=== PATIENT | female | born 1995 | race American Indian/Alaskan Native ===

== ENCOUNTER 2018-09-19 13:40 | Inpatient (IN) | payer OTHER ==
[2018-09-19] MEDS ORDERED: DILAUDID IV ONE (14:01)
--- NOTE | 2018-09-19 14:02 | Emergency Department Report ---
ED General Adult HPI - General Chief complaint: Sickle Cell Crisis Stated complaint: SICKLE CELL PAIN Time Seen by Provider: 09/19/18 13:54 Source: patient, EMS (ems notes not available at time of chart dictation), RN notes reviewed, old records reviewed Mode of arrival: Stretcher Limitations: No Limitations - History of Present Illness Initial comments: This is a 23-year-old female. The patient is not known to this provider previously. The patient reports that she is 5 months . 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 She does not have a local PLASTER LATHER physician. She does not have a local shingle carrier. The patient reports that she is 3, para 2, 0 She presents to the emergency room today with a complaint of nontraumatic left- sided leg pain. The pain is in the left posterior calf. It is sharp. It is constant. It does not radiate anywhere. It worsens with palpation and range of motion. It decreases with rest. She reports that she feels like she is having her typical sickle cell crises. Her triggers include cold weather, change of seasons. She denies headache, neck pain, chest pain, abdominal pain, shortness of breath, sore throat, irritative/obstructive urinary symptoms. Her pain started last night. She reports it is basically constant. -: Gradual Location: left, lower extremity Quality: aching Consistency: other Improves with: other Worsens with: other - Related Data Home Medications Medication Instructions Recorded Confirmed Last Taken No Known Home Medications [No 09/19/18 09/19/18 Unknown Reported Home Medications] Allergies Allergy/AdvReac Type Severity Reaction Status Date / Time No Known Allergies Allergy Unverified 08/26/14 11:39 ED Review of Systems ROS: Stated complaint: SICKLE CELL PAIN Other details as noted in HPI Constitutional: denies: fever, malaise Eyes: denies: vision change ENT: denies: epistaxis Respiratory: denies: cough Cardiovascular: denies: chest pain Gastrointestinal: denies: abdominal pain, nausea, vomiting Genitourinary: denies: urgency, dysuria Musculoskeletal: arthralgia, myalgia Skin: denies: lesions Neurological: denies: headache, weakness Psychiatric: denies: anxiety ED Past Medical Hx - Past Medical History Previous Medical History?: Yes Hx Sickle Cell Disease: Yes (SC) - Surgical History Past Surgical History?: Yes Additional Surgical History: x 1 - Social History Smoking Status: Never Smoker Substance Use Type: None - Medications Home Medications: Home Medications Medication Instructions Recorded Confirmed Last Taken Type No Known Home Medications [No 09/19/18 09/19/18 Unknown History Reported Home Medications] ED Physical Exam - General Limitations: No Limitations General appearance: alert, in no apparent distress - Head Head exam: Present: atraumatic, normocephalic - Eye Eye exam: Present: normal appearance, EOMI. Absent: nystagmus - ENT ENT exam: Present: normal exam, normal orophraynx, mucous membranes moist - Neck Neck exam: Present: normal inspection, full ROM. Absent: tenderness, meningismus - Respiratory Respiratory exam: Present: normal lung sounds bilaterally. Absent: respiratory distress - Cardiovascular Cardiovascular Exam: Present: regular rate, normal rhythm, normal heart sounds. Absent: bradycardia, tachycardia, irregular rhythm, systolic murmur, diastolic murmur, rubs, gallop - GI/Abdominal GI/Abdominal exam: Present: soft. Absent: distended, tenderness, guarding, rebound, rigid, pulsatile mass - Extremities Exam Extremities exam: Present: normal inspection, full ROM, other (2+ pulses noted in the bilateral upper, lower extremities. Compartments soft. No long bony tenderness. The pelvis is stable.). Absent: tenderness, pedal edema, joint sw elling, calf tenderness - Back Exam Back exam: Present: normal inspection, full ROM. Absent: tenderness, CVA tenderness (R), paraspinal tenderness, vertebral tenderness - Neurological Exam Neurological exam: Present: alert, oriented X3, CN II-XII intact, other (Extraocular movements intact. Tongue midline. No facial droop. Facial sensation intact to light touch in the V1, V2, V3 distribution bilaterally. 5 and 5 strength in 4 extremities.. Sensation is intact to light touch in 4 extremities.). Absent: motor sensory deficit - Psychiatric Psychiatric exam: Present: normal affect, normal mood - Skin Skin exam: Present: warm, dry, intact, normal color. Absent: rash ED Course Vital Signs 09/19/18 09/19/18 09/19/18 15:13 15:16 15:24 Temperature 99.3 F Pulse Rate 125 H Respiratory 16 Rate Blood Pressure 124/69 124/69 Blood Pressure 124/69 [Right] O2 Sat by Pulse 100 100 125 H Oximetry 09/19/18 09/19/18 09/19/18 15:30 15:45 16:00 Temperature Pulse Rate 111 H 98 H 104 H Respiratory 12 12 18 Rate Blood Pressure 124/69 126/63 126/63 Blood Pressure 98/52 [Right] O2 Sat by Pulse 98 99 98 Oximetry 09/19/18 09/19/18 09/19/18 16:24 16:30 16:46 Temperature Pulse Rate 129 H 121 H 104 H Respiratory 21 16 14 Rate Blood Pressure 98/52 113/51 113/51 Blood Pressure 118/66 [Right] O2 Sat by Pulse 98 100 Oximetry 09/19/18 09/19/18 09/19/18 17:00 17:08 17:30 Temperature Pulse Rate 114 H 114 H Respiratory 14 16 16 Rate Blood Pressure 108/58 Blood Pressure 108/58 123/64 [Right] O2 Sat by Pulse 98 100 Oximetry - Reevaluation(s) Reevaluation #1: 09/19/18 15:01 Differential diagnosis, including without limited to: Sickle cell crisis, DVT, incidental , urinary tract infection Assessment and plan: 23-year-old female who reports that she is , with no outpatient care, reportedly 5 months , with nontraumatic left leg pain. The patient is currently sleeping, and no acute distress. We will obtain left lower extremity DVT study, although she is not tachycardic, she is not hypoxic, does not endorse chest pain, and her physical examination thus far does not appear to be consistent with DVT. Given endorse lack of care, we will obtain ultrasound, and appropriate screening laboratory studies, including urinalysis. She will be treated with IV fluids, and hydromorphone. Reevaluation #2: 09/19/18 16:35 Laboratory studies haven't indicated hyponatremia, hypochloremia, hypo-kalemia. DVT study was negative. Discussed with nephrology nuclear control room operator, Dr. Dumont, who finds it unlikely that the patient's sodium is truly 80, and recommends repeating laboratory studies she is not encephalopathic. I am in agreement with his recommendations. Patient found to be tachycardic, leukocytosis, with elevated reticulocyte count. I will await return of her sodium, and initiate therapy with ceftriaxone empirically. If the patient is truly hyponatremic, I will initiate volume resuscitation in coordination with pathologies recommendations, as we do not want to precipitate osmotic demyelination syndrome. Also discussed with obstetrics slate trimmer nuclear control room operator, Arlene covering for Dr. Ocasio, the OB group agrees to follow in consultation. Patient will likely be admitted to the medical service for electrolyte derangement, and sickle cell crisis. Reevaluation #3: 09/19/18 16:53 Repeat laboratory studies demonstrate normal sodium, normalized potassium. Reevaluation #4: 09/19/18 17:13 Dr Barney to admit for sirs, sickle cell crisis. Repeat laboratory studies reviewed and appreciated. Ultrasound pending, obstetrics consultation pending. Reevaluation #5: 09/19/18 18:54 X-ray the chest is negative for acute disease. ED Medical Decision Making - Lab Data Result diagrams: 09/19/18 14:37 09/19/18 16:06 Lab Results 09/19/18 Range/Units 14:37 WBC 21.4 H (4.5-11.0) K/mm3 RBC 4.06 (3.65-5.03) M/mm3 Hgb 11.0 (10.1-14.3) gm/dl Hct 32.4 (30.3-42.9) % MCV 80 (79-97) fl MCH 27 L (28-32) pg MCHC 34 (30-34) % RDW 18.6 H (13.2-15.2) % Plt Count 378 (140-440) K/mm3 Percent Retic 4.36 H (0.78-2.58) % - EKG Data -: EKG Interpreted by [facility] EKG shows normal: sinus rhythm Rate: normal - EKG Data 09/19/18 16:37 Sinus tachycardia, 104 bpm, normal axis, QTC prolonged, abnormal EKG, not having chest pain, borderline atrial enlargement, not consistent with ST elevation myocardial infarction. - Radiology Data Radiology results: pending Critical care attestation.: If time is entered above; I have spent that time in minutes in the direct care of this critically ill patient, excluding procedure time. ED Disposition Clinical Impression: Sickle cell crisis, , Systemic inflammatory response syndrome (SIRS) Disposition: OP ADMIT IP TO THIS HOSP Is pt being admited?: Yes Condition: Good
[2018-09-19 14:55] LABS: Hematocrit 32.4 % (30.3-42.9); Mean Corpuscular HGB Conc 34 % (30-34); Mean Corpuscular Volume 80 fl (79-97); Platelet Count 378 K/mm3 (140-440); Red Blood Count 4.06 M/mm3 (3.65-5.03); Red Cell Distribution Width 18.6 % (13.2-15.2)
[2018-09-19] MEDS ORDERED: D5/0.45NS 1,000 ML IV SCH ×2 (15:00→18:00)
[2018-09-19 15:30] LABS: BUN/Creatinine Ratio 13; Blood Urea Nitrogen 4 mg/dL (7-17); Calcium 8.6 mg/dL (8.4-10.2); Hemolysis Index 10; RBC Morphology Normal; Total Cells Counted 100
[2018-09-19 15:31] LABS: Giant Platelets 1+
[2018-09-19 15:34] LABS: Alanine Aminotransferase < 5 units/L (7-56); Albumin < 0.2 g/dL (3.9-5)
--- NOTE | 2018-09-19 15:41 | Vascular Lab Report ---
PROCEDURE: VL VENOUS DUPLEX LE LT TECHNIQUE: Duplex Doppler ultrasound of the veins of the left infarction was performed HISTORY: lle pain hb sc diseasse COMPARISONS: None. FINDINGS: The veins of the left lower extremity are patent, compressible, demonstrate normal waveforms and augm entation. IMPRESSION: No evidence of deep venous thrombosis of the left lower extremity. This document is electronically signed by Gely Wahl MD., September 19 2018 03:38:37 PM ET
[2018-09-19] MEDS ORDERED: ROCEPHIN/NS 1 GM/50 ML 1 GM/50 ML BAG IV ONE (15:42)
[2018-09-19 15:43] LABS: Bacteria,Urine 2+ /HPF (Negative); Bilirubin,Urine NEG (Negative); Blood,Urine NEG (Negative); Color,Urine Yellow (Yellow); Protein,Urine <15 mg/dL mg/dL (Negative); Urobilinogen,Urine < 2.0 mg/dL (<2.0)
[2018-09-19 16:44] LABS: BUN/Creatinine Ratio 13; Blood Urea Nitrogen 4 mg/dL (7-17); Calcium 8.3 mg/dL (8.4-10.2); Hemolysis Index 46
[2018-09-19] MEDS ORDERED: NACL 0.9% 1000 ML 2,000 ML IV ONE (16:56)
--- NOTE | 2018-09-19 17:50 | XRay Report ---
PROCEDURE: XR CHEST ROUTINE 2V TECHNIQUE: PA and lateral views of the chest. HISTORY: sirs, hbsc crisis, ? pneumonia COMPARISONS: None FINDINGS: Lines, tubes, and devices: N/A Lungs and pleura: Trachea is normal in position. Lungs are clear of infiltrate, pleural effusion, vas cular congestion, or pneumothorax. Cardiomediastinal silhouette: Cardiac and mediastinal silhouettes are unremarkable. Other: Bony structures are intact. IMPRESSION: No acute cardiopulmonary process seen. . This document is electronically signed by Faby Yip MD., September 19 2018 05:48:30 PM ET
--- NOTE | 2018-09-19 19:07 | Event Note ---
Date: 09/19/18 Provider at bedside to see pt but pt not in room.Will come back later.
--- NOTE | 2018-09-19 20:18 | Ultrasound Report ---
PROCEDURE: US OB >= 14 WEEKS FETUS HISTORY: [facility] FINDINGS: Real-time ultrasound of the pelvis was performed by transabdominal technique. These images demonstrate a single live intrauterine gestation in cephalic lie, with cardiac act ivity at 150 bpm. The choroid plexus, cisterna magna, cerebellum, lateral ventricles, stomach, kidneys, bladder, diaphr agm, four-chamber heart, three-vessel cord, anterior cord insertion were identified. Biparietal diameter is 3.9 cm which corresponds to 18 weeks and 0 days. Head circumference is 15.2 cm corresponds to 18 weeks 1 day. Abdominal circumference is 13.4 cm corresponds to 18 weeks and 6 days. Femur length is 2.6 cm which corresponds to 18 weeks and 0 days. There is an anterior grade 1 placenta. Cervical length is 5.1 cm. Amniotic fluid index was not measured. Deepest fluid pocket is 5.4 cm. IMPRESSION: Live intrauterine gestation 18 weeks 2 days. Estimated date of delivery is February 18 9 This document is electronically signed by Rafi Dupree MD., September 19 2018 08:16:38 PM ET
[2018-09-19] MEDS: DILAUDID IM PRN (20:31)
[2018-09-19] MEDS: NACL 0.9% 1000 ML 1,000 ML IV SCH (20:31)
--- NOTE | 2018-09-19 23:29 | History and Physical Report ---
History of Present Illness Date of examination: 09/19/18 Date of admission: 09/19/18 17:15 Medications and Allergies Allergies Allergy/AdvReac Type Severity Reaction Status Date / Time No Known Allergies Allergy Unverified 08/26/14 11:39 Home Medications Medication Instructions Recorded Confirmed Last Taken Type No Known Home Medications [No 09/19/18 09/19/18 Unknown History Reported Home Medications] Active Meds: Active Medications Hydromorphone HCl (Dilaudid) 1 mg IM Q4H PRN PRN Reason: Pain , Severe (7-10) Last Admin: 09/19/18 20:31 Dose: 1 mg Documented by: Dextrose/Sodium Chloride (D5/0.45ns) 1,000 mls @ 0 mls/hr IV DIRECT OC Last Admin: 09/19/18 15:00 Dose: 999 mls/hr Documented by: Dextrose/Sodium Chloride (D5/0.45ns) 1,000 mls @ 0 mls/hr IV DIRECT OC Sodium Chloride (Nacl 0.9% 1000 Ml) 1,000 mls @ 125 mls/hr IV DIRECT OC Last Admin: 09/19/18 20:31 Dose: 125 mls/hr Documented by: Exam - Constitutional Vitals: Temp Pulse Resp BP Pulse Ox 98.7 F 110 H 16 114/69 100 09/19/18 20:26 09/19/18 20:26 09/19/18 20:26 09/19/18 20:26 09/19/18 20:26 Results - Labs CBC & Chem 7: 09/19/18 14:37 09/19/18 16:06 Labs: Laboratory Last Values WBC 21.4 K/mm3 (4.5-11.0) H 09/19/18 14:37 RBC 4.06 M/mm3 (3.65-5.03) 09/19/18 14:37 Hgb 11.0 gm/dl (10.1-14.3) 09/19/18 14:37 Hct 32.4 % (30.3-42.9) 09/19/18 14:37 MCV 80 fl (79-97) 09/19/18 14:37 MCH 27 pg (28-32) L 09/19/18 14:37 MCHC 34 % (30-34) 09/19/18 14:37 RDW 18.6 % (13.2-15.2) H 09/19/18 14:37 Plt Count 378 K/mm3 (140-440) 09/19/18 14:37 Add Manual Diff Complete 09/19/18 14:37 Total Counted 100 09/19/18 14:37 Seg Neuts % (Manual) 82.0 % (40.0-70.0) H 09/19/18 14:37 Band Neutrophils % 0 % 09/19/18 14:37 Lymphocytes % (Manual) 11.0 % (13.4-35.0) L 09/19/18 14:37 Reactive Lymphs % (Man) 0 % 09/19/18 14:37 Monocytes % (Manual) 4.0 % (0.0-7.3) 09/19/18 14:37 Eosinophils % (Manual) 2.0 % (0.0-4.3) 09/19/18 14:37 Basophils % (Manual) 1.0 % (0.0-1.8) 09/19/18 14:37 Metamyelocytes % 0 % 09/19/18 14:37 Myelocytes % 0 % 09/19/18 14:37 Promyelocytes % 0 % 09/19/18 14:37 Blast Cells % 0 % 09/19/18 14:37 Nucleated RBC % Not Reportable 09/19/18 14:37 Seg Neutrophils # Man 17.5 K/mm3 (1.8-7.7) H 09/19/18 14:37 Band Neutrophils # 0.0 K/mm3 09/19/18 14:37 Lymphocytes # (Manual) 2.4 K/mm3 (1.2-5.4) 09/19/18 14:37 Abs React Lymphs (Man) 0.0 K/mm3 09/19/18 14:37 Monocytes # (Manual) 0.9 K/mm3 (0.0-0.8) H 09/19/18 14:37 Eosinophils # (Manual) 0.4 K/mm3 (0.0-0.4) 09/19/18 14:37 Basophils # (Manual) 0.2 K/mm3 (0.0-0.1) H 09/19/18 14:37 Metamyelocytes # 0.0 K/mm3 09/19/18 14:37 Myelocytes # 0.0 K/mm3 09/19/18 14:37 Promyelocytes # 0.0 K/mm3 09/19/18 14:37 Blast Cells # 0.0 K/mm3 09/19/18 14:37 WBC Morphology Not Reportable 09/19/18 14:37 Hypersegmented Neuts Not Reportable 09/19/18 14:37 Hyposegmented Neuts Not Reportable 09/19/18 14:37 Hypogranular Neuts Not Reportable 09/19/18 14:37 Smudge Cells Not Reportable 09/19/18 14:37 Toxic Granulation Not Reportable 09/19/18 14:37 Toxic Vacuolation Not Reportable 09/19/18 14:37 Dohle Bodies Not Reportable 09/19/18 14:37 Pelger-Huet Anomaly Not Reportable 09/19/18 14:37 Octavia Rods Not Reportable 09/19/18 14:37 Platelet Estimate Not Reportable 09/19/18 14:37 Clumped Platelets Not Reportable 09/19/18 14:37 Plt Clumps, EDTA Not Reportable 09/19/18 14:37 Large Platelets Not Reportable 09/19/18 14:37 Giant Platelets 1+ 09/19/18 14:37 Platelet Satelliting Not Reportable 09/19/18 14:37 Plt Morphology Comment Not Reportable 09/19/18 14:37 RBC Morphology Normal 09/19/18 14:37 Dimorphic RBCs Not Reportable 09/19/18 14:37 Polychromasia Not Reportable 09/19/18 14:37 Hypochromasia Not Reportable 09/19/18 14:37 Poikilocytosis Not Reportable 09/19/18 14:37 Anisocytosis Not Reportable 09/19/18 14:37 Microcytosis Not Reportable 09/19/18 14:37 Macrocytosis Not Reportable 09/19/18 14:37 Spherocytes Not Reportable 09/19/18 14:37 Pappenheimer Bodies Not Reportable 09/19/18 14:37 Sickle Cells Not Reportable 09/19/18 14:37 Target Cells Not Reportable 09/19/18 14:37 Tear Drop Cells Not Reportable 09/19/18 14:37 Ovalocytes Not Reportable 09/19/18 14:37 Helmet Cells Not Reportable 09/19/18 14:37 Roland-[place] Bodies Not Reportable 09/19/18 14:37 [place] Rings Not Reportable 09/19/18 14:37 Snehal Cells Not Reportable 09/19/18 14:37 Bite Cells Not Reportable 09/19/18 14:37 Crenated Cell Not Reportable 09/19/18 14:37 Elliptocytes Not Reportable 09/19/18 14:37 Acanthocytes (Spur) Not Reportable 09/19/18 14:37 Rouleaux Not Reportable 09/19/18 14:37 Hemoglobin C Crystals Not Reportable 09/19/18 14:37 Schistocytes Not Reportable 09/19/18 14:37 Malaria parasites Not Reportable 09/19/18 14:37 Percent Retic 4.36 % (0.78-2.58) H 09/19/18 14:37 Reji Bodies Not Reportable 09/19/18 14:37 Hem Pathologist Commnt No 09/19/18 14:37 Sodium 131 mmol/L (137-145) L D 09/19/18 16:06 Potassium 3.7 mmol/L (3.6-5.0) D 09/19/18 16:06 Chloride 100.3 mmol/L (98-107) 09/19/18 16:06 Carbon Dioxide 20 mmol/L (22-30) L 09/19/18 16:06 Anion Gap 14 mmol/L 09/19/18 16:06 BUN 4 mg/dL (7-17) L 09/19/18 16:06 Creatinine 0.3 mg/dL (0.7-1.2) L 09/19/18 16:06 Estimated GFR > 60 ml/min 09/19/18 16:06 BUN/Creatinine Ratio 13 % 09/19/18 16:06 Glucose 207 mg/dL (65-100) H 09/19/18 16:06 Osmolality 285 Mosm/kg 09/19/18 16:06 Lactic Acid 1.50 mmol/L (0.7-2.0) 09/19/18 16:06 Calcium 8.3 mg/dL (8.4-10.2) L 09/19/18 16:06 Magnesium 1.90 mg/dL (1.7-2.3) 09/19/18 16:06 Total Bilirubin 0.60 mg/dL (0.1-1.2) 09/19/18 14:37 AST 16 units/L (5-40) 09/19/18 14:37 ALT < 5 units/L (7-56) L 09/19/18 14:37 Alkaline Phosphatase < 5 units/L (35-129) L 09/19/18 14:37 Total Creatine Kinase 31 units/L (30-135) 09/19/18 14:37 Total Protein 6.8 g/dL (6.3-8.2) 09/19/18 14:37 Albumin < 0.2 g/dL (3.9-5) L 09/19/18 14:37 Albumin/Globulin Ratio 0.0 % 09/19/18 14:37 HCG, Quant 34670 mIU/mL (0-4) H 09/19/18 14:37 Urine Color Yellow (Yellow) 09/19/18 14:42 Urine Turbidity Clear (Clear) 09/19/18 14:42 Urine pH 6.0 (5.0-7.0) 09/19/18 14:42 Ur Specific [place] 1.008 (1.003-1.030) 09/19/18 14:42 Urine Protein <15 mg/dl mg/dL (Negative) 09/19/18 14:42 Urine Glucose (UA) Neg mg/dL (Negative) 09/19/18 14:42 Urine Ketones Neg mg/dL (Negative) 09/19/18 14:42 Urine Blood Neg (Negative) 09/19/18 14:42 Urine Nitrite Neg (Negative) 09/19/18 14:42 Urine Bilirubin Neg (Negative) 09/19/18 14:42 Urine Urobilinogen < 2.0 mg/dL (<2.0) 09/19/18 14:42 Ur Leukocyte Esterase Neg (Negative) 09/19/18 14:42 Urine WBC (Auto) 1.0 /HPF (0.0-6.0) 09/19/18 14:42 Urine RBC (Auto) 1.0 /HPF (0.0-6.0) 09/19/18 14:42 U Epithel Cells (Auto) 2.0 /HPF (0-13.0) 09/19/18 14:42 Urine Bacteria (Auto) 2+ /HPF (Negative) 09/19/18 14:42 Blood Type O POSITIVE 09/19/18 14:45 Antibody Screen Negative 09/19/18 14:45
[2018-09-19] MEDS ORDERED: SODIUM CHLORIDE FLUSH SYRINGE 10 ML IV PRN (23:30)
[2018-09-19] MEDS ORDERED: ZOFRAN IV PRN ×2 (23:30→23:31)
[2018-09-19] MEDS ORDERED: TYLENOL PO PRN (23:30)
[2018-09-19] MEDS ORDERED: D5NS 1,000 ML IV SCH (23:45)
[2018-09-20] MEDS: DILAUDID IM PRN ×4 (01:18→13:21)
[2018-09-20] MEDS: NACL 0.9% 1000 ML 1,000 ML IV SCH (05:03)
--- NOTE | 2018-09-20 07:14 | Event Note ---
Date: 09/19/18 See H/p in reports Sickle cell crisis
--- NOTE | 2018-09-20 08:14 | History and Physical Report ---
CHIEF COMPLAINT: Severe pain in both the lower extremities. HISTORY OF PRESENT ILLNESS: A 23-year-old female, 5 months with history of hemoglobin sickle cell disease, comes in for severe pain in both the lower extremities and pelvic region. No pain in the chest region. The patient had severe sickle cell crisis a few years ago, was not admitted for a couple of years. Comes in for a pain of 10/10, sharp, intermittent in nature, mostly in the left calf and right lower extremity. Worsens with palpation and range of motion. Decreases with rest. The pain is sharp. No shortness of breath. PAST MEDICAL HISTORY: Significant for sickle cell disease. PAST SURGICAL HISTORY: x 1. SOCIAL HISTORY: Does not smoke. FAMILY HISTORY: Hypertension. CURRENT MEDICATIONS: None. REVIEW OF SYSTEMS: Significant for bilateral lower extremity pain. PHYSICAL EXAMINATION: GENERAL: Young female, resting, in some distress because of pain. VITAL SIGNS: Blood pressure 104/62. Temperature is 98.7. Pulse is 100. Respirations 16. HEENT: Unremarkable. NECK: Supple, no lymphadenopathy, no thyromegaly. LUNGS: Clear to auscultation and percussion. Good air entry. CARDIOVASCULAR SYSTEM: S1, S2 heard. No gallop, no murmur, no rub. Apical impulse in left fifth intercostal space in midclavicular line. ABDOMEN: Soft and benign. No hepatosplenomegaly. No guarding, no rigidity. Hernial orifices are normal. EXTREMITIES: Good pedal pulses. No pedal edema. CENTRAL NERVOUS SYSTEM: Alert and oriented x 4, nonfocal exam. SKIN: Normal. LABORATORY DATA: Significant for white count of 21,400. H and H is 11.0 and 32.4, platelet count is 378,000. Sodium is ____. Potassium is 2.5. BUN and creatinine is 4 and 0.3. HCG is 31,781. Urine negative. Repeat sodium is 131 and potassium is 3.7. DIAGNOSTIC DATA: Chest x-ray done, shows no acute cardiopulmonary process. ASSESSMENT AND PLAN: 1. Sickle cell crisis. The patient started on IV fluids and IV Dilaudid. The patient is . The pain medications will be used judiciously. Toradol is contraindicated. 2. of 5 months. DRY CELL TESTER consult requested. 3. Lower extremity pain, deep venous thrombosis was ruled out. Duplex scan was done. 4. Leukocytosis, probably demargination, but the patient started on ceftriaxone empirically. 5. Deep venous thrombosis prophylaxis, sequential compression devices. 6. Gastrointestinal prophylaxis. JOB# [id number] SAVANNA/TANI BAIRES
[2018-09-20] MEDS ORDERED: ROCEPHIN/NS 2 GM/100 ML 2 GM/100 ML BAG IV SCH (09:00)
[2018-09-20] MEDS: SODIUM CHLORIDE FLUSH SYRINGE 10 ML IV SCH (11:17)
--- NOTE | 2018-09-20 14:27 | Progress Note ---
Assessment and Plan Assessment and plan: Patient is a 23 yo woman who is reported to be 5 month with a history of sickle cell disease presented to [facility] from police custody with bilateral bone pains. She denies headache and cough. Sickle cell pain crisis: will discharge back to police custody once stable, consult Heme/onc, IUP, supposedly 5 months : per blocker and sewer, consult [facility] due to contract with [employer] police. Patient really should be under the care MFM Leukocytosis most likely reactive, stop ABX Move to Mother/Baby for monitoring History Interval history: Patient was seen and examined. Follow-up on current diagnosis of SSC. Overnight uneventful. Patient denies any chest pain, shortness breath, nausea/vomiting or severe headaches. Imaging, nursing note, chart, labs and old chart reviewed. Discussed with patient. Hospitalist Physical - Physical exam Narrative exam: Gen: WDWN, NAD, Awake, Alert, Orientated HEENT: NCAT, EOMI, PERRL, OP Clear Neck: supple, no adenopathy, no thyromegaly, no JVD CVS/Heart: RRR, normal S1S2, pulses present bilaterally Chest/Lungs: CTA B, Symmetrical chest expansion, good air entry bilaterally GI/Abdomen: soft, NTND, good bowel sounds, no guarding or rebound /Bladder: no suprapubic tenderness, no CVA or paraspinal tenderness Extermity/Skin: no c/c/e, no obvious rash MSK: FROM x 4 Neuro: CN 2-12 grossly intact, no new focal deficits Psych: calm - Constitutional Vitals: Temp Pulse Resp BP Pulse Ox 99.6 F 118 H 16 113/59 98 09/20/18 12:28 09/20/18 12:28 09/20/18 12:28 09/20/18 12:28 09/20/18 12:28 Results - Labs CBC & Chem 7: 09/19/18 14:37 09/19/18 16:06 Labs: Laboratory Last Values WBC 21.4 K/mm3 (4.5-11.0) H 09/19/18 14:37 RBC 4.06 M/mm3 (3.65-5.03) 09/19/18 14:37 Hgb 11.0 gm/dl (10.1-14.3) 09/19/18 14:37 Hct 32.4 % (30.3-42.9) 09/19/18 14:37 MCV 80 fl (79-97) 09/19/18 14:37 MCH 27 pg (28-32) L 09/19/18 14:37 MCHC 34 % (30-34) 09/19/18 14:37 RDW 18.6 % (13.2-15.2) H 09/19/18 14:37 Plt Count 378 K/mm3 (140-440) 09/19/18 14:37 Add Manual Diff Complete 09/19/18 14:37 Total Counted 100 09/19/18 14:37 Seg Neuts % (Manual) 82.0 % (40.0-70.0) H 09/19/18 14:37 Band Neutrophils % 0 % 09/19/18 14:37 Lymphocytes % (Manual) 11.0 % (13.4-35.0) L 09/19/18 14:37 Reactive Lymphs % (Man) 0 % 09/19/18 14:37 Monocytes % (Manual) 4.0 % (0.0-7.3) 09/19/18 14:37 Eosinophils % (Manual) 2.0 % (0.0-4.3) 09/19/18 14:37 Basophils % (Manual) 1.0 % (0.0-1.8) 09/19/18 14:37 Metamyelocytes % 0 % 09/19/18 14:37 Myelocytes % 0 % 09/19/18 14:37 Promyelocytes % 0 % 09/19/18 14:37 Blast Cells % 0 % 09/19/18 14:37 Nucleated RBC % Not Reportable 09/19/18 14:37 Seg Neutrophils # Man 17.5 K/mm3 (1.8-7.7) H 09/19/18 14:37 Band Neutrophils # 0.0 K/mm3 09/19/18 14:37 Lymphocytes # (Manual) 2.4 K/mm3 (1.2-5.4) 09/19/18 14:37 Abs React Lymphs (Man) 0.0 K/mm3 09/19/18 14:37 Monocytes # (Manual) 0.9 K/mm3 (0.0-0.8) H 09/19/18 14:37 Eosinophils # (Manual) 0.4 K/mm3 (0.0-0.4) 09/19/18 14:37 Basophils # (Manual) 0.2 K/mm3 (0.0-0.1) H 09/19/18 14:37 Metamyelocytes # 0.0 K/mm3 09/19/18 14:37 Myelocytes # 0.0 K/mm3 09/19/18 14:37 Promyelocytes # 0.0 K/mm3 09/19/18 14:37 Blast Cells # 0.0 K/mm3 09/19/18 14:37 WBC Morphology Not Reportable 09/19/18 14:37 Hypersegmented Neuts Not Reportable 09/19/18 14:37 Hyposegmented Neuts Not Reportable 09/19/18 14:37 Hypogranular Neuts Not Reportable 09/19/18 14:37 Smudge Cells Not Reportable 09/19/18 14:37 Toxic Granulation Not Reportable 09/19/18 14:37 Toxic Vacuolation Not Reportable 09/19/18 14:37 Dohle Bodies Not Reportable 09/19/18 14:37 Pelger-Huet Anomaly Not Reportable 09/19/18 14:37 Octavia Rods Not Reportable 09/19/18 14:37 Platelet Estimate Not Reportable 09/19/18 14:37 Clumped Platelets Not Reportable 09/19/18 14:37 Plt Clumps, EDTA Not Reportable 09/19/18 14:37 Large Platelets Not Reportable 09/19/18 14:37 Giant Platelets 1+ 09/19/18 14:37 Platelet Satelliting Not Reportable 09/19/18 14:37 Plt Morphology Comment Not Reportable 09/19/18 14:37 RBC Morphology Normal 09/19/18 14:37 Dimorphic RBCs Not Reportable 09/19/18 14:37 Polychromasia Not Reportable 09/19/18 14:37 Hypochromasia Not Reportable 09/19/18 14:37 Poikilocytosis Not Reportable 09/19/18 14:37 Anisocytosis Not Reportable 09/19/18 14:37 Microcytosis Not Reportable 09/19/18 14:37 Macrocytosis Not Reportable 09/19/18 14:37 Spherocytes Not Reportable 09/19/18 14:37 Pappenheimer Bodies Not Reportable 09/19/18 14:37 Sickle Cells Not Reportable 09/19/18 14:37 Target Cells Not Reportable 09/19/18 14:37 Tear Drop Cells Not Reportable 09/19/18 14:37 Ovalocytes Not Reportable 09/19/18 14:37 Helmet Cells Not Reportable 09/19/18 14:37 [place] Bodies Not Reportable 09/19/18 14:37 [place] Rings Not Reportable 09/19/18 14:37 [place] Cells Not Reportable 09/19/18 14:37 Bite Cells Not Reportable 09/19/18 14:37 Crenated Cell Not Reportable 09/19/18 14:37 Elliptocytes Not Reportable 09/19/18 14:37 Acanthocytes (Spur) Not Reportable 09/19/18 14:37 Rouleaux Not Reportable 09/19/18 14:37 Hemoglobin C Crystals Not Reportable 09/19/18 14:37 Schistocytes Not Reportable 09/19/18 14:37 Malaria parasites Not Reportable 09/19/18 14:37 Percent Retic 4.36 % (0.78-2.58) H 09/19/18 14:37 Reji Bodies Not Reportable 09/19/18 14:37 Hem Pathologist Commnt No 09/19/18 14:37 Sodium 131 mmol/L (137-145) L D 09/19/18 16:06 Potassium 3.7 mmol/L (3.6-5.0) D 09/19/18 16:06 Chloride 100.3 mmol/L (98-107) 09/19/18 16:06 Carbon Dioxide 20 mmol/L (22-30) L 09/19/18 16:06 Anion Gap 14 mmol/L 09/19/18 16:06 BUN 4 mg/dL (7-17) L 09/19/18 16:06 Creatinine 0.3 mg/dL (0.7-1.2) L 09/19/18 16:06 Estimated GFR > 60 ml/min 09/19/18 16:06 BUN/Creatinine Ratio 13 % 09/19/18 16:06 Glucose 207 mg/dL (65-100) H 09/19/18 16:06 Osmolality 285 Mosm/kg 09/19/18 16:06 Lactic Acid 1.50 mmol/L (0.7-2.0) 09/19/18 16:06 Calcium 8.3 mg/dL (8.4-10.2) L 09/19/18 16:06 Magnesium 1.90 mg/dL (1.7-2.3) 09/19/18 16:06 Total Bilirubin 0.60 mg/dL (0.1-1.2) 09/19/18 14:37 AST 16 units/L (5-40) 09/19/18 14:37 ALT < 5 units/L (7-56) L 09/19/18 14:37 Alkaline Phosphatase < 5 units/L (35-129) L 09/19/18 14:37 Total Creatine Kinase 31 units/L (30-135) 09/19/18 14:37 Total Protein 6.8 g/dL (6.3-8.2) 09/19/18 14:37 Albumin < 0.2 g/dL (3.9-5) L 09/19/18 14:37 Albumin/Globulin Ratio 0.0 % 09/19/18 14:37 HCG, Quant 50835 mIU/mL (0-4) H 09/19/18 14:37 Urine Color Yellow (Yellow) 09/19/18 14:42 Urine Turbidity Clear (Clear) 09/19/18 14:42 Urine pH 6.0 (5.0-7.0) 09/19/18 14:42 Ur Specific [place] 1.008 (1.003-1.030) 09/19/18 14:42 Urine Protein <15 mg/dl mg/dL (Negative) 09/19/18 14:42 Urine Glucose (UA) Neg mg/dL (Negative) 09/19/18 14:42 Urine Ketones Neg mg/dL (Negative) 09/19/18 14:42 Urine Blood Neg (Negative) 09/19/18 14:42 Urine Nitrite Neg (Negative) 09/19/18 14:42 Urine Bilirubin Neg (Negative) 09/19/18 14:42 Urine Urobilinogen < 2.0 mg/dL (<2.0) 09/19/18 14:42 Ur Leukocyte Esterase Neg (Negative) 09/19/18 14:42 Urine WBC (Auto) 1.0 /HPF (0.0-6.0) 09/19/18 14:42 Urine RBC (Auto) 1.0 /HPF (0.0-6.0) 09/19/18 14:42 U Epithel Cells (Auto) 2.0 /HPF (0-13.0) 09/19/18 14:42 Urine Bacteria (Auto) 2+ /HPF (Negative) 09/19/18 14:42 Blood Type O POSITIVE 09/19/18 14:45 Antibody Screen Negative 09/19/18 14:45
[2018-09-20] MEDS ORDERED: PERCOCET 5/325 PO PRN (14:38)
[2018-09-20] MEDS ORDERED: D5/0.45NS 1,000 ML IV SCH (15:00)
--- NOTE | 2018-09-20 15:00 | Event Note ---
Date: 09/20/18 Patient is in the custody of [facility] who is contracted with [facility] to care for the patients. Dr. Timi Mireles is aware and will assess patient
[2018-09-20] MEDS: PRENATAL VITAMIN PO SCH (15:39)
--- NOTE | 2018-09-20 18:27 | Consultation ---
History of Present Illness Consult date: 09/20/18 Requesting physician: ROYER MACIAS Reason for consult: other (IUP @ 18 2/7 weeks; Sickle cell crisis) History of present illness: Pt is a 23yo BF EDC 02/18/18; EGA 18 2/7 weeks presents to the emergency room today from [facility] with a complaint of non-traumatic left-sided leg pain. The pain is in the left posterior calf, is sharp and is constant. It does not radiate anywhere, but worsens with palpation and range of motion. It decreases with rest. She reports that she feels like she is having her typical sickle cell pain crises. Her triggers include cold weather, change of seasons. She denies headache, neck pain, chest pain, abdominal pain, shortness of breath, sore throat, irritative/obstructive urinary symptoms. Her pain started last night. She reports it is basically constant. Past History Past Medical History: hematologic disorders (Sickle cell disease) Past Surgical History: section Family/Genetic History: sickle cell/trait Social history: no significant social history, single - Obstetrical History Expected Date of Delivery: 02/18/19 Actual Gestation: 18 Week(s) 3 Day(s) Medications and Allergies Allergies Allergy/AdvReac Type Severity Reaction Status Date / Time No Known Allergies Allergy Unverified 08/26/14 11:39 Home Medications Medication Instructions Recorded Confirmed Last Taken Type No Known Home Medications [No 09/19/18 09/19/18 Unknown History Reported Home Medications] Active Meds: Active Medications Acetaminophen (Tylenol) 650 mg PO Q4H PRN PRN Reason: Pain MILD(1-3)/Fever >100.5/PRATT Hydromorphone HCl (Dilaudid) 1 mg IV Q4H PRN PRN Reason: Pain , Severe (7-10) Dextrose/Sodium Chloride (D5/0.45ns) 1,000 mls @ 100 mls/hr IV DIRECT OC Last Admin: 09/20/18 15:40 Dose: 100 mls/hr Documented by: Multivitamins/Iron/Calcium ( Vitamin) 1 each PO QDAY OC Last Admin: 09/20/18 15:39 Dose: 1 each Documented by: Oxycodone/Acetaminophen (Percocet 5/325) 2 tab PO Q4H PRN PRN Reason: Pain , Severe (7-10) Last Admin: 09/20/18 17:14 Dose: 2 tab Documented by: Sodium Chloride (Sodium Chloride Flush Syringe 10 Ml) 10 ml IV BID OC Last Admin: 09/20/18 11:17 Dose: 10 ml Documented by: Sodium Chloride (Sodium Chloride Flush Syringe 10 Ml) 10 ml IV PRN PRN PRN Reason: LINE FLUSH Review of Systems All systems: negative - Vital Signs Vital signs: Vital Signs BP Pulse Ox 124/69 100 09/19/18 15:13 09/19/18 15:13 Temp Pulse Resp BP Pulse Ox 98.9 F 116 H 18 117/58 94 09/20/18 17:32 09/20/18 17:32 09/20/18 17:32 09/20/18 17:32 09/20/18 17:32 - Physical Exam Breasts: Positive: deferred Abdomen: Positive: normal appearance, soft Uterus: Positive: enlarged Extremities: Positive: tenderness - Obstetrical FHR: auscultation normal Results Result Diagrams: 09/19/18 14:37 09/19/18 16:06 All other labs normal. Ultrasound: report reviewed Chest x-ray: report reviewed Assessment and Plan - Patient Problems (1) 18 weeks gestation of Onset Date: 09/20/18 Current Visit: Yes Status: Acute Plan to address problem: A: IUP @ 18 2/7 weeks Sickle cell pain crisis Incarcerated P: Agree with admission for treatment of pain crisis No Obstetrical intervention at this time Will monitor heart rate with Dopplers QD Agree with Hematology consultation Follow up in office upon discharge (2) Sickle cell crisis Onset Date: 09/20/18 Current Visit: Yes Status: Acute
[2018-09-20] MEDS: DILAUDID IV PRN (21:56)
[2018-09-21] MEDS: DILAUDID IV PRN ×2 (03:21→09:39)
[2018-09-21] MEDS: SODIUM CHLORIDE FLUSH SYRINGE 10 ML IV SCH ×2 (03:21→09:39)
[2018-09-21] MEDS: PRENATAL VITAMIN PO SCH (09:38)
--- NOTE | 2018-09-21 11:35 | Discharge Summary ---
Providers - Providers Date of Admission: 09/21/18 11:23 Date of discharge: 09/21/18 Attending physician: ROYER MACIAS 09/20/18 14:29 Consult to Physician [CONS] Routine Comment: Consulting Provider: MATTI ONEILL Physician Instructions: Reason For Exam: IUP and sickle cell Primary care physician: [employer] Hospitalization Condition: Stable Hospital course: Patient is a 23 woman in [facility] with a history of sickle cell disease presented to [facility] from police custody with bilateral legs pains, left greater than right. She denies headache and cough. Today, patient has leg crossed and the (large heavy) handcuffs around the right ankle which is laying on top of her left leg and she has not pain; so I her crisis is most likely over. Sickle cell pain crisis: will discharge back to police custody once stable, consult Heme/onc, IUP, supposedly 5 months but U/S reported 18 weeks: per government services professional, consult [facility] due to contract with [facility] police. Patient really should be under the care MFM Leukocytosis most likely reactive, stop ABX Disposition: DC-01 TO HOME OR SELFCARE Time spent for discharge: 32 minutes Core Measure Documentation - Palliative Care Palliative Care/ Comfort Measures: Not Applicable - Core Measures Any of the following diagnoses?: none - VTE Discharge Requirements Deep Vein Thrombosis/Pulmonary Embolism Present on Admission: No Has pt received <5 days of overlap therapy or INR<2.0: No Anticoagulant overlap therapy prescribed at discharge: No Contraindication No Overlap Therapy order at DC: Not Indicated Exam - Physical Exam Narrative exam: Gen: WDWN, NAD, Awake, Alert, Orientated HEENT: NCAT, EOMI, PERRL, OP Clear Neck: supple, no adenopathy, no thyromegaly, no JVD CVS/Heart: RRR, normal S1S2, pulses present bilaterally Chest/Lungs: CTA B, Symmetrical chest expansion, good air entry bilaterally GI/Abdomen: soft, NTND, good bowel sounds, no guarding or rebound /Bladder: no suprapubic tenderness, no CVA or paraspinal tenderness Extermity/Skin: no c/c/e, no obvious rash MSK: FROM x 4 Neuro: CN 2-12 grossly intact, no new focal deficits Psych: calm - Constitutional Vitals: Temp Pulse Resp BP Pulse Ox 98.4 F 102 H 16 97/52 98 09/21/18 05:14 09/21/18 05:14 09/21/18 05:14 09/21/18 05:14 09/21/18 05:14 Plan Activity: other (no strenous activities) Diet: regular Follow up with: GILMAR GALLARDO JR, MD [Staff Physician] - 3-5 Days Prescriptions: oxyCODONE /ACETAMINOPHEN [Percocet 5/325 mg] 1 tab PO Q4H PRN #15 tablet PRN Reason: Pain , Severe (7-10)
[2018-09-21 11:52] VITALS: BP 98/37
== END 2018-09-21 14:10 | disposition home or self-care (01) | DRG 831 ==
LOC: ED 13:40 → 3A 17:15 → EEVIPCON 17:15 → OBSVTOIN 09-21 11:23
PROVIDERS: ADMIT Internal Medicine; ATTEND Internal Medicine
DX: O99.012 Anemia complicating pregnancy, second trimester (principal); D57.00 Hb-SS disease with crisis, unspecified; O98.812 Other maternal infectious and parasitic diseases complicating pregnancy, second trimester; R65.10 Systemic inflammatory response syndrome (SIRS) of non-infectious origin without acute organ dysfunction; D72.829 Elevated white blood cell count, unspecified; Z3A.18 18 weeks gestation of pregnancy
CPT/HCPCS: 36415; 71046; 76805; 80048; 80053; 81001; 82140; 82550; 83735; 83930; 84300; 84702; 85007; 85025; 85045; 86850; 86900; 86901; 87040; 87116; 87400; 93005; 93010; 96365; 96366; 96367; 96375; G0378; J0696; J1170; J7030